=== PATIENT | male | born 1975 | race African-American/Black ===

== ENCOUNTER → 2017-05-29 18:55 | Outpatient (CLI) | payer MEDICAID | END | disposition home or self-care (01) | LOC: D.SLEEP 18:55 | DX: G47.9 Sleep disorder, unspecified (principal) ==

== ENCOUNTER 2017-07-17 19:18 | Emergency (ER) | payer MEDICAID | END 2017-07-17 22:26 | disposition home or self-care (01) | LOC: D.ER 19:18 | DX: R51 Headache (principal); E03.9 Hypothyroidism, unspecified; I10 Essential (primary) hypertension ==

== ENCOUNTER 2017-11-18 08:47 | Emergency (ER) | payer MEDICAID | END 2017-11-18 09:16 | disposition home or self-care (01) | LOC: D.ER 08:47 | DX: L02.416 Cutaneous abscess of left lower limb (principal); B95.62 Methicillin resistant Staphylococcus aureus infection as the cause of diseases classified elsewhere; I10 Essential (primary) hypertension ==

== ENCOUNTER 2018-03-26 16:44 | Emergency (ER) | payer MEDICAID ==
[~2018-03-26] VITALS: Ht 185.4 cm; Wt 113.6 kg
[2018-03-26 17:38] VITALS: Ht 185.4 cm; Wt 113.6 kg
[2018-03-26] MEDS ORDERED: PRINIVIL20 MG (17:41)
[2018-03-26] MEDS ORDERED: SYNTHROID75 MCG PO (17:41)
[2018-03-26] MEDS ORDERED: CYCLOBENZAPRINE10 MG PO (19:43)
[2018-03-26] MEDS ORDERED: EC-NAPROSYN500 MG PO (19:43)
[2018-03-26 20:15] VITALS: BP 127/91
== END 2018-03-26 20:15 | disposition home or self-care (01) ==
LOC: D.ER 16:44
DX: S39.012A Strain of muscle, fascia and tendon of lower back, initial encounter (principal); V43.62XA Car passenger injured in collision with other type car in traffic accident, initial encounter; Y93.89 Activity, other specified; Y92.410 Unspecified street and highway as the place of occurrence of the external cause; M25.552 Pain in left hip; M25.512 Pain in left shoulder; I10 Essential (primary) hypertension

== ENCOUNTER 2018-03-31 18:10 | Emergency (ER) | payer MEDICAID ==
[~2018-03-31] VITALS: Ht 185.4 cm; Wt 113.6 kg
[~2018-03-31 18:10] MED LIST: CYCLOBENZAPRINE10 MG PO; EC-NAPROSYN500 MG PO; PRINIVIL20 MG; SYNTHROID75 MCG PO
[2018-03-31 18:19] VITALS: Ht 185.4 cm; Wt 113.6 kg
[2018-03-31] MEDS ORDERED: NORCO 7.5/325 T1 TA1 PO (20:11)
[2018-03-31 20:29] VITALS: BP 134/90
== END 2018-03-31 20:29 | disposition home or self-care (01) ==
LOC: D.ER 18:10
DX: Q66.89 Other specified congenital deformities of feet (principal); E07.9 Disorder of thyroid, unspecified; I10 Essential (primary) hypertension

== ENCOUNTER 2018-06-29 02:13 | Emergency (ER) | payer MEDICAID ==
[~2018-06-29] VITALS: Ht 185.4 cm; Wt 72.7 kg
[~2018-06-29 02:13] MED LIST changes: +NORCO 7.5/325 T1 TA1 PO
[2018-06-29 02:20] VITALS: Ht 185.4 cm; Wt 72.7 kg
[2018-06-29] MEDS ORDERED: ALBUTEROL SULF8.5 GM INH (03:32)
[2018-06-29 03:52] VITALS: BP 132/83
== END 2018-06-29 03:52 | disposition home or self-care (01) ==
LOC: D.ER 02:13
DX: R06.02 Shortness of breath (principal)

== ENCOUNTER 2018-09-08 10:43 | Emergency (ER) | payer MEDICAID ==
[~2018-09-08] VITALS: Ht 185.4 cm; Wt 90.9 kg
[~2018-09-08 10:43] MED LIST changes: +ALBUTEROL SULF8.5 GM INH
[2018-09-08 10:46] VITALS: Ht 185.4 cm; Wt 90.9 kg
[2018-09-08] MEDS ORDERED: TAMIFLU75 MG PO (11:19)
[2018-09-08 11:23] VITALS: BP 124/62
== END 2018-09-08 11:24 | disposition home or self-care (01) ==
LOC: D.ER 10:43
DX: J11.1 Influenza due to unidentified influenza virus with other respiratory manifestations (principal); R51 Headache; R07.89 Other chest pain

== ENCOUNTER → 2019-01-22 14:06 | Outpatient (CLI) | payer MEDICAID ==
[2018-09-08 10:46] VITALS: BMI 26.4
[~2019-01-22 14:06] MED LIST changes: +CLOTRIM ANTIFUN15 GM TOPICAL; +COUMADIN5 MG PO; +ELIQUIS5 MG PO; +HYDROCHLOROTHIA50 MG PO; +IBUPROFEN800 MG PO; +METOPROLOL TART50 MG PO; -PRINIVIL20 MG; +PRINIVIL20 MG PO; +TAMIFLU75 MG PO
[2019-03-16 13:50] VITALS: BMI 31.0
== END | disposition home or self-care (01) ==
LOC: D.US 14:00
PROVIDERS: ATTEND Nurse Practitioner
DX: R60.9 Edema, unspecified (principal)

== ENCOUNTER 2019-01-22 15:19 | Emergency (ER) | payer MEDICAID ==
[~2019-01-22] VITALS: Ht 185.4 cm; Wt 127.3 kg
[~2019-01-22 15:19] MED LIST changes: -CLOTRIM ANTIFUN15 GM TOPICAL; -COUMADIN5 MG PO; -ELIQUIS5 MG PO; -HYDROCHLOROTHIA50 MG PO; -IBUPROFEN800 MG PO; -METOPROLOL TART50 MG PO
[2019-01-22 15:33] VITALS: Ht 185.4 cm; Wt 127.3 kg
[2019-01-22 16:14] LABS: BASOPHILS 0.2 % (0-2); EOSINOPHILS 1.8 % (0-7); HEMATOCRIT 46.4 % (42.0-54.0); HEMOGLOBIN 15.5 g/dL (13.5-17.5); IMMATURE GRANULOCYTES 0.3 % (0-5); LYMPHOCYTES 29.4 % (15-50); MCH 27.4 pg (26.0-34.0); MCHC 33.4 g/dL (31.0-37.0); MEAN PLATELET VOLUME 9.3 fL (7.4-10.4); NEUTROPHILS 60.3 % (40-80); PLATELET COUNT 170 10x3/uL (130-400); RBC 5.66 10x6/uL (4.20-6.10); RDW 16.1 % (11.5-14.5); WBC 6.3 10x3/uL (4.8-10.8)
[2019-01-22 16:22] LABS: INR 1.12 (0.85-1.17); PROTIME 13.9 SECONDS (11.6-15.0)
[2019-01-22 16:33] LABS: ALBUMIN 4.1 g/dL (3.4-5.0); ANION GAP 8.6 mmol/L (8-16); BILIRUBIN - TOTAL 0.86 mg/dL (0.2-1.3); CALCIUM 9.4 mg/dL (8.5-10.1); CARBON DIOXIDE 31.7 mmol/L (21.0-32.0); CREATININE - SERUM 1.2 mg/dL (0.6-1.3); POTASSIUM - SERUM 3.3 mmol/L (3.5-5.1); PROTEIN - SERUM 8.4 g/dL (6.4-8.2)
[2019-01-22] MEDS ORDERED: ELIQUIS5 MG PO (17:19)
[2019-01-22 17:47] VITALS: BP 132/92
== END 2019-01-22 17:47 | disposition home or self-care (01) ==
LOC: D.ER 15:19
PROVIDERS: Family Medicine
DX: I82.403 Acute embolism and thrombosis of unspecified deep veins of lower extremity, bilateral (principal)

== ENCOUNTER 2019-02-03 15:14 | Emergency (ER) | payer MEDICAID ==
[~2019-02-03] VITALS: Ht 185.4 cm; Wt 124.7 kg
[~2019-02-03 15:14] MED LIST changes: +ELIQUIS5 MG PO
[2019-02-03 15:38] VITALS: Ht 185.4 cm; Wt 124.7 kg
[2019-02-03 16:23] LABS: APTT 31.1 SECONDS (22.8-39.4); INR 1.22 (0.85-1.17); PROTIME 14.9 SECONDS (11.6-15.0)
[2019-02-03 16:24] LABS: D-DIMER-QUANTITATIVE 3.01 ug/mLFEU (0.20-0.54)
[2019-02-03 16:57] LABS: BASOPHILS 0.2 % (0-2); EOSINOPHILS 1.3 % (0-7); HEMATOCRIT 41.7 % (42.0-54.0); HEMOGLOBIN 14.1 g/dL (13.5-17.5); IMMATURE GRANULOCYTES 0.2 % (0-5); LYMPHOCYTES 35.8 % (15-50); MCH 27.4 pg (26.0-34.0); MCHC 33.8 g/dL (31.0-37.0); MEAN PLATELET VOLUME 9.4 fL (7.4-10.4); MONOCYTES 12.2 % (2-11); NEUTROPHILS 50.3 % (40-80); PLATELET COUNT 168 10x3/uL (130-400); RBC 5.15 10x6/uL (4.20-6.10); RDW 15.4 % (11.5-14.5); WBC 6.4 10x3/uL (4.8-10.8)
[2019-02-03 17:12] LABS: ALBUMIN 3.8 g/dL (3.4-5.0); ALKALINE PHOSPHATASE 90 U/L (46-116); ALT (SGPT) 43 U/L (10-68); BILIRUBIN - TOTAL 0.33 mg/dL (0.2-1.3); CALC OSMOLALITY 272 mosm/kg (275-300); CALCIUM 9.7 mg/dL (8.5-10.1); CARBON DIOXIDE 26.2 mmol/L (21.0-32.0); CHLORIDE - SERUM 103 mmol/L (98-107); CREATININE - SERUM 1.1 mg/dL (0.6-1.3); GLUCOSE 108 mg/dL (74-106); POTASSIUM - SERUM 3.9 mmol/L (3.5-5.1); PROTEIN - SERUM 7.8 g/dL (6.4-8.2); SODIUM 136 mmol/L (136-145); UREA NITROGEN 13 mg/dL (7-18); URIC ACID 6.5 mg/dL (2.6-7.2); eGFR NON AFRICAN AMERICAN 78 mL/min (90-120)
[2019-02-03 19:31] VITALS: BP 152/78
== END 2019-02-03 19:32 | disposition home or self-care (01) ==
LOC: D.ER 15:14
PROVIDERS: Family Medicine
DX: S90.111A Contusion of right great toe without damage to nail, initial encounter (principal); X58.XXXA Exposure to other specified factors, initial encounter; Z86.718 Personal history of other venous thrombosis and embolism

== ENCOUNTER 2019-02-12 07:50 | Inpatient (IN) | payer MEDICAID ==
[~2019-02-12] VITALS: Ht 185.4 cm; Wt 108.0 kg
[2019-02-12] VITALS (14 sets, daily range): BP systolic 91–154; BP diastolic 57–99
[2019-02-12] MEDS ORDERED: IBUPROFEN800 MG PO (08:07)
[2019-02-12 08:33] LABS: BASOPHILS 0.1 % (0-2); EOSINOPHILS 1.5 % (0-7); HEMATOCRIT 42.9 % (42.0-54.0); HEMOGLOBIN 14.5 g/dL (13.5-17.5); IMMATURE GRANULOCYTES 0.5 % (0-5); LYMPHOCYTES 21.7 % (15-50); MCH 27.5 pg (26.0-34.0); MCHC 33.8 g/dL (31.0-37.0); MCV 81.4 fL (80.0-100.0); MEAN PLATELET VOLUME 9.5 fL (7.4-10.4); MONOCYTES 5.4 % (2-11); NEUTROPHILS 70.8 % (40-80); RBC 5.27 10x6/uL (4.20-6.10); RDW 15.9 % (11.5-14.5); WBC 8.7 10x3/uL (4.8-10.8)
[2019-02-12 08:41] LABS: PLATELET COUNT 107 10x3/uL (130-400)
[2019-02-12 08:43] LABS: APTT 29.1 SECONDS (22.8-39.4); INR 1.14 (0.85-1.17); PROTIME 14.1 SECONDS (11.6-15.0)
--- NOTE | 2019-02-12 08:47 | NUR ---
CARDIOLOGY CALLED AND INSTR TO KEEP PT NPO AND NO CAFFEINE FOR ST THIS AM. INSTR PT, VERB UNDER.
[2019-02-12 08:49] LABS: ALBUMIN 3.7 g/dL (3.4-5.0); ALKALINE PHOSPHATASE 99 U/L (46-116); ALT (SGPT) 179 U/L (10-68); BILIRUBIN - TOTAL 0.75 mg/dL (0.2-1.3); CALC OSMOLALITY 285 mosm/kg (275-300); CALCIUM 9.4 mg/dL (8.5-10.1); CARBON DIOXIDE 26.3 mmol/L (21.0-32.0); CHLORIDE - SERUM 106 mmol/L (98-107); CREATININE - SERUM 1.3 mg/dL (0.6-1.3); GLUCOSE 166 mg/dL (74-106); POTASSIUM - SERUM 3.5 mmol/L (3.5-5.1); PROTEIN - SERUM 7.9 g/dL (6.4-8.2); SODIUM 141 mmol/L (136-145); UREA NITROGEN 14 mg/dL (7-18); eGFR NON AFRICAN AMERICAN 64 mL/min (90-120)
[2019-02-12 08:52] LABS: D-DIMER-QUANTITATIVE 9.87 ug/mLFEU (0.20-0.54)
--- NOTE | 2019-02-12 09:02 | NUR ---
NUC MED TECH AT BS FOR MED INJECTION
[2019-02-12 09:04] LABS: CKMB 1.5 U/L (0.0-3.6); CREATINE KINASE 420 UL (21-232); MAGNESIUM - SERUM 1.8 mg/dL (1.8-2.4); TROPONIN-I 0.059 ng/mL (0.000-0.060)
--- NOTE | 2019-02-12 09:45 | NUR ---
TO NUC MED FOR ST VIA STRETCHER
--- NOTE | 2019-02-12 11:10 | NUR ---
RTND FROM ST ND CT
--- NOTE | 2019-02-12 11:55 | NUR ---
O2 SATS 87-88% ON RA O2 PLACED AT 2 L PNC
--- NOTE | 2019-02-12 12:56 | NUR ---
REPORT CALLED TO CAN [facility] BY SBAR FORMAT
--- NOTE | 2019-02-12 13:00 | NUR ---
TRANSPORTED TO ROOM #2126, CONDITION STABLE
--- NOTE | 2019-02-12 13:51 | NUR ---
RECEIVED PT FROM ER. PT IS AAO AND UP AD DAGOBERTO. NS INFUSING @125ML/HR VIA L.AC PIV. RR EVEN AND LABORED ON 2L 02. ENTERED ROOM AND WITNESSED INSTRUCTING THE PT FOR THE NEED TO TRANSFER TO ICU. TRANSFERED PT TO ROOM 2306. WILL CTM.
[2019-02-12] MEDS ORDERED: HYDROCHLOROTHIA50 MG PO (14:15)
[2019-02-12] MEDS ORDERED: CLOTRIM ANTIFUN15 GM TOPICAL (14:16)
[2019-02-12 14:24] LABS: CREATINE KINASE 365 UL (21-232); PRO BNP 1496 pg/mL (0-125)
[2019-02-12 14:27] LABS: TROPONIN-I 0.174 ng/mL (0.000-0.060)
--- NOTE | 2019-02-12 15:00 | NUR ---
RECEIVED PT FROM [facility]. STARTED ON ALTEPLASE. COMPLETING ADMISSION ASSESSMENT
[2019-02-12 15:11] LABS: HEMATOCRIT 41.4 % (42.0-54.0); MCH 27.2 pg (26.0-34.0); MCHC 33.8 g/dL (31.0-37.0); MCV 80.5 fL (80.0-100.0); MEAN PLATELET VOLUME 9.1 fL (7.4-10.4); RBC 5.14 10x6/uL (4.20-6.10); RDW 15.6 % (11.5-14.5); WBC 7.8 10x3/uL (4.8-10.8)
--- NOTE | 2019-02-12 17:00 | NUR ---
PT EATING MEAL TRAY. TOLERATING WELL. WILL CONTINUE TO MONITOR
[2019-02-12 17:34] LABS: APTT 105.2 SECONDS (22.8-39.4); INR 2.25 (0.85-1.17); PROTIME 24.2 SECONDS (11.6-15.0)
--- NOTE | 2019-02-12 19:11 | NUR ---
REPORT RECEIVED, SHIFT ASSESSMENT COMPLETED PER FLOW SHEET, SEE FOR DETAILS. AAOX4. PPP. DENIES PAIN OR NEEDS. LT AC PIV PATENT, DRESSING C/D/I, NO SIGNS OF INFECTION OR INFILTRATION. CALL LIGHT WITHIN REACH. WILL CONTINUE TO MONITOR.
--- NOTE | 2019-02-12 20:25 | MORECARE ---
CASE MANAGEMENT DISCHARGE SUMMARY PATIENT: GUMARO CHEN UNIT: [id number] ADM DATE: 02/12/19 AGE: 43 : [birth year] SEX: M ROOM/BED: D.2306 AUTHOR: ANGIE,DOC PHYSICIAN: REFERRING PHYSICIAN: ANDI OGLESBY MD DATE OF SERVICE: 02/12/19 Discharge Plan Patient Name: GUMARO CHEN Facility: [facility]:[place] : 1975 Planned Disposition: Home Anticipated Discharge Date: Discharge Date: Expected LOS: Initial Reviewer: [email or web address] Initial Review Date: 02/12/2019 Generated: 02/12/19 9:25 pm Comments DCP- Discharge Planning Updated by [email or web address]: Karuna Armstrong on 02/12/19 7:[address] Patient Name: GUMARO CHEN Admission Status: ER Accout number: [id number] Admission Date: 02-12-2019 : 1975 Admission Diagnosis: Attending: BRAULIO OGLESBY Current LOS: 1 Anticipated DC Date: Planned Disposition: Home Primary Insurance: MEDICAID [place] Discharge Planning Comments: CM met with patient at bedside after explaining CM role and obtaining verbal consent. Patient lives at home with his friend Darlin where he is independent with his care and plans to return there upon discharge. Patient feels this would be a safe discharge. CM discussed availability / needs of home health and medical equipment. Patient states he has a CPAP but Medicaid will not pay for it so they are suppose to pick it up. Patient denies any discharge needs at this time. Patient states he will have his family drive him home upon discharge. CM will continue to follow and assist as needed with discharge planning / needs. Herb Doctor: Karuna Armstrong DCPIA - Discharge Planning Initial Assessment Updated by [id number]: Karuna Armstrong on 02/12/19 8:22 pm * Is the patient Alert and Oriented? Yes * How many steps to enter\exit or inside your home? 4-6 * PCP CAROLE * [facility]acy [facility] * Preadmission Environment Home with Family * ADLs Independent * Other Equipment CPAP * List name and contact numbers for known caregivers / representatives who currently or will assist patient after discharge: DARLIN BRYANT- [phone] * Verbal permission to speak to the caregivers and representatives has been obtained from the patient. Yes * Community resources currently utilized None * Additional services required to return to the preadmission environment? No * Can the patient safely return to the preadmission environment? Yes * Has this patient been hospitalized within the prior 30 days at any hospital? No Patient Name: GUMARO CHEN Page [id number] at 2024 All edits/amendments must be made on the electronic document DICTATION DATE: 02/12/192024 HAND BOOKBINDER: WOOD 02/12/192024 RPT#: [id number] DC DATE: STATUS: ADM IN [facility] [address] [place] [address] END OF REPORT
--- NOTE | 2019-02-12 21:00 | NUR ---
RESTING IN BED, WATCHING TV, DENIES PAIN OR NEEDS. PPP. WILL CONTINUE TO MONITOR.
[2019-02-12 21:56] LABS: CKMB 1.6 U/L (0.0-3.6); CREATINE KINASE 302 UL (21-232)
[2019-02-12 22:00] LABS: TROPONIN-I 0.123 ng/mL (0.000-0.060)
--- NOTE | 2019-02-12 23:01 | NUR ---
REASSESSMENT COMPLETED PER FLOW SHEET, SEE FOR DETAILS. DENIES PAIN OR NEEDS. CALL LIGHT WITHIN REACH. WILL CONTINUE TO MONITOR.
[2019-02-13] VITALS (18 sets, daily range): BP systolic 104–145; BP diastolic 63–84; Ht 185.4 cm; Wt 108.0 kg
--- NOTE | 2019-02-13 01:00 | NUR ---
DENIES NEEDS, NO ACUTE DISTRESS NOTED, WILL CONTINUE TO MONITOR.
--- NOTE | 2019-02-13 03:00 | NUR ---
REASSESSMENT COMPLETED PER FLOW SHEET, SEE FOR DETAILS. NO ACUTE CHANGES NOTED. DENIES PAIN. WILL CONTINUE TO MONITOR.
--- NOTE | 2019-02-13 05:00 | NUR ---
RESTING, DENIES NEEDS, WILL CONTINUE TO MONITOR.
[2019-02-13 05:51] LABS: BASOPHILS 0.1 % (0-2); HEMATOCRIT 37.9 % (42.0-54.0); HEMOGLOBIN 12.7 g/dL (13.5-17.5); IMMATURE GRANULOCYTES 0.5 % (0-5); LYMPHOCYTES 27.3 % (15-50); MCHC 33.5 g/dL (31.0-37.0); MCV 80.6 fL (80.0-100.0); MEAN PLATELET VOLUME 9.3 fL (7.4-10.4); MONOCYTES 8.1 % (2-11); PLATELET COUNT 101 10x3/uL (130-400); RDW 15.8 % (11.5-14.5); WBC 9.2 10x3/uL (4.8-10.8)
--- NOTE | 2019-02-13 06:00 | NUR ---
COMPLETE BED BATH GIVEN, COMPLETE BED LINEN CHANGE PROVIDED, MITCHELL CARE PROVIDED. TOLERATED ALL WELL. DENIES OTHER NEEDS. CALL LIGHT WITHIN REACH.
[2019-02-13 06:23] LABS: ALKALINE PHOSPHATASE 72 U/L (46-116); BILIRUBIN - TOTAL 0.66 mg/dL (0.2-1.3); CALCIUM 8.4 mg/dL (8.5-10.1); CARBON DIOXIDE 27.9 mmol/L (21.0-32.0); CHLORIDE - SERUM 109 mmol/L (98-107); CREATININE - SERUM 1.1 mg/dL (0.6-1.3); POTASSIUM - SERUM 3.7 mmol/L (3.5-5.1); PROTEIN - SERUM 6.3 g/dL (6.4-8.2); SODIUM 143 mmol/L (136-145); UREA NITROGEN 12 mg/dL (7-18); eGFR NON AFRICAN AMERICAN 78 mL/min (90-120)
[2019-02-13 06:24] LABS: ALT (SGPT) 112 U/L (10-68); CALC OSMOLALITY 284 mosm/kg (275-300); GLUCOSE 101 mg/dL (74-106)
--- NOTE | 2019-02-13 07:00 | NUR ---
patient resting. breakfast provided. will continue to monitor. vss. call light within reach. shift assessment completed.
--- NOTE | 2019-02-13 09:00 | NUR ---
patien afebrile. oral care provided at this time. vss. denies needs at this time. pass word set up. will conitnue to monitor
--- NOTE | 2019-02-13 11:04 | NUR ---
patient sleeping. vss. bed low and locked. vss. call light within reach. no needs at this time. no distress noted. no changes.
--- NOTE | 2019-02-13 12:16 | NUR ---
dr springer at bedside. update given..
--- NOTE | 2019-02-13 13:00 | NUR ---
PATIENT SLEEPING AT THIS TIME. NO DISTRESS NOTED. WILL CONTINUE TO MONITOR.
--- NOTE | 2019-02-13 15:20 | NUR ---
PATIENT ON THE PHONE. WILL TRANSFER AFTER CODE IS SETTLED DOWN. VSS. WILL CONTINUE TO MONITOR
--- NOTE | 2019-02-13 16:04 | NUR ---
OFFICER AT BEDSIDE. PATIENT IS HAVING PERSONAL PROBLEMS SO CALLED OFFICER TO ICU TO TRY AND FIX.
--- NOTE | 2019-02-13 17:16 | NUR ---
PATIENT ON THE PHONE. DISCUSSING PERSONAL PROBLEMS LOUDLY. I AND O DONE AT THIS TIME. WILL CONTINUE TO MONITOR. TRAY PROVIDED.
--- NOTE | 2019-02-13 18:18 | NUR ---
report given to sushil
[2019-02-14 00:27] VITALS: BP 130/68
--- NOTE | 2019-02-14 03:18 | NUR ---
I have reviewed this patient and I concur with the Shift Assessment completed by the Licensed Practical Nurse today this shift.
--- NOTE | 2019-02-14 03:20 | NUR ---
RESTING WITH EYES CLOSED, RESPERATONS EVEN, NO S/S DSITRESS NOTED.
[2019-02-14 04:19] VITALS: BP 117/64
[2019-02-14 06:59] LABS: THYROID STIMULATING HORMONE 8.43 uIU/mL (0.36-3.74)
--- NOTE | 2019-02-14 07:21 | NUR ---
REPORT RECEIVED. WILL CONTINUE WITH POC. PT CURRENTLY LYING SEMI FOWLERS. CALL LIGHT W/I REACH. PT IS AAO AND DENIES ANY NEEDS. RR EVEN AND UNLABORED ON RA. NS INFUSING @75ML/HR AND HEPARIN INFUSING @8ML/HR VIA R.WRIST PIV. MITCHELL IN PLACE AND DRAINING URINE. NO S/S OF DISTRESS NOTED. WILL CTM.
--- NOTE | 2019-02-14 08:25 | NUR ---
INCREASED HEPARIN TO 9ML/HR PER PROTOCOL AND PLACED ORDERED FOR APTT REDRAW @1400. WILL CTM.
[2019-02-14 08:32] VITALS: BP 142/96
--- NOTE | 2019-02-14 09:26 | NUR ---
I have reviewed this patient and I concur with the Shift Assessment completed by the Licensed Practical Nurse today this shift.
[2019-02-14 11:34] VITALS: BP 131/88
--- NOTE | 2019-02-14 12:32 | NUR ---
PT CURRENTLY LYING SEMI FOWLERS. CALL LIGHT W/I REACH. PT DENIES ANY NEEDS. NO S/S OF DISTRESS NOTED. WILL CTM.
[2019-02-14 16:23] VITALS: BP 138/98
--- NOTE | 2019-02-14 16:26 | NUR ---
INCREASED HEPARIN INFUSION TO 10ML/HR OR 1000UNITS/HR PER PROTOCOL. PLACED ORDER FOR APTT REDRAW 6 HOURS OUT. WILL CTM.
--- NOTE | 2019-02-14 19:29 | NUR ---
INITIAL ROUNDS COMPLETED. PT DENIES ANY DISCOMFORT. SR UP X1, ALL LIGHT WITHIN REACH.
[2019-02-14 20:00] VITALS: BP 137/85
--- NOTE | 2019-02-14 20:23 | NUR ---
ASSESSMENT COMPLETED AT 1955 HRS. PT DENIED ANY DISCOMFORT. ALERT AND ORIENTED TO PERSON, PLACE AND TIME. CAREY. IV TO R WRIST WITH NS AT 75CC/HR AND HEPARIN AT 1000U/HR. IV PATETN. LUNGS DIMINISHED IN BASES BILAT. PALPABLE PERIPHERAL PULSES MITCHELL DRAINING YELLOW URINE. SR UP X2, CALL LIGHT WITHIN REACH.
--- NOTE | 2019-02-14 21:37 | NUR ---
PM MED GIVEN. PT DENIES ANY DISCOMFORT. CALL LIGHT WITHIN REACH.
--- NOTE | 2019-02-14 23:10 | NUR ---
PTT 42.2. HEPARIN DRIP INCREASED BY 1000U/HR TO 11CC/HR.
--- NOTE | 2019-02-14 23:14 | NUR ---
PT COUGHING. SLIGHTLY BLOOD TINGED EXUDATE NOTED. ST PER CM HR 102. PT DENIES ANY SOB OR DIFFUCULTY BREATHING. FAN PLACED IN ROOM PER REQUEST.
--- NOTE | 2019-02-14 23:33 | NUR ---
PT RESTING WITH EYES CLOSED. RESP EVEN AND REGULAR. SR UP X1, CALL LIGHT WITHIN REACH.
[2019-02-15] VITALS: BP 126/77
--- NOTE | 2019-02-15 01:14 | NUR ---
O2 SAT IN HIGH 60'S. PT DENIES ANY DISCOMFORT. O2 4LNC WITH O SAT TO 73. RESP CALLED. PT PLACED ON 100% NON-REBREATHER. O2 STILL IN 70'S. RAPID RESPONSE CALLED AT 0050 HRS. O2 SAT TO 88-90% ABG'S DRAWN AND CXR IN PROGRESS.
--- NOTE | 2019-02-15 01:17 | NUR ---
R LUNG MORE DIMINSHED AT THIS TIME COMPARED TO INITIAL ASSESSMENT.
--- NOTE | 2019-02-15 01:57 | NUR ---
O2 SAT NOW 95% ON 100% BIPAP. RT STSATES WILL WEAN DOWN. INFORMED PT TAHT HE MUST LEAVE BIPAP MASK IN PLACE. STATED UNDERSTANDING. SR UP X1, CALL LIGHT WITHIN REACH.
--- NOTE | 2019-02-15 02:50 | NUR ---
O2 SAT 100% ON 100% BIPAP. RESP 24. PT RESTING WTH EYES CLOSED. RESP EVEN AND REGULAR. SR UP X1, CALL LIGHT WITHIN REACH.
[2019-02-15 04:00] VITALS: BP 128/84
--- NOTE | 2019-02-15 04:18 | NUR ---
O2 SAT 100% ON BIPAP. PT RESTING WITH EYES CLOSED. RESP EVEN AND REGULAR. SR UP X2, CALL LIGHT WITHIN REACH.
--- NOTE | 2019-02-15 05:55 | NUR ---
VSS THIS AM. SR PER CM. O2 STABLE ON BIPAP. NEEDS MET; WILL CONTINUE TO MONITOR.
[2019-02-15 06:21] LABS: HEMATOCRIT 39.2 % (42.0-54.0); HEMOGLOBIN 13.6 g/dL (13.5-17.5); MCH 27.6 pg (26.0-34.0); MCHC 34.7 g/dL (31.0-37.0); MCV 79.7 fL (80.0-100.0); MEAN PLATELET VOLUME 9.5 fL (7.4-10.4); RBC 4.92 10x6/uL (4.20-6.10); RDW 15.5 % (11.5-14.5)
[2019-02-15 06:35] LABS: WBC 12.5 10x3/uL (4.8-10.8)
[2019-02-15 06:59] LABS: APTT 50.1 SECONDS (22.8-39.4); INR 1.21 (0.85-1.17); PROTIME 14.8 SECONDS (11.6-15.0)
[2019-02-15 07:13] LABS: HCG-QUANTITATIVE(TUMOR MARKER) <1 mIU/mL (0-3)
--- NOTE | 2019-02-15 07:46 | NUR ---
PT AWAKE AND ALERT. PT ON A BIPAP AT 80%. DENIES ANY FEELING OF SOB. TELEMERTY SHOWS SR 83. RIGHT WRIST IV WITH HEPARIN DRIP AT 11 AND NS AT 75. MITCHELL CATH TO BEDSIDE DRAINAGE. WILL MONITOR
[2019-02-15 09:14] VITALS: BP 144/87
[2019-02-15 14:08] LABS: ALPHA FETOPROTEIN -(TUMOR MRK) 2.6 ng/mL (0.0-8.3); CA 19-9 2 U/mL (0-35)
--- NOTE | 2019-02-15 16:04 | NUR ---
NO COMPLAINTS VOICED. EYES CLOSED ,RESPERATION REG AND NON LABORED. TELEMERTY SHOWS SR
--- NOTE | 2019-02-15 18:24 | NUR ---
HOB UP EATING. DENIES ANY NEEDS. TELEMETY SHOWS SR 78. WILL MONITOR
[2019-02-15 21:04] VITALS: BP 159/95
--- NOTE | 2019-02-15 21:44 | NUR ---
INITAIL ROUNDS COMPLETED AT 1914 HRS. PT TALKING ON THE PHONE. NO DISTRESS NOTED. ASSESSMENT COMPLETED AT 2019 HRS. O2 SAT 91% ON 3LNC. ALERT AND ORIENTED. SLOW TO RESPOND. LUNGS DIMINISHED IN BASES BILAT. SR PER CM HR 97. CAREY. PALPABLE PERIPHERAL PULSES. MITCHELL DRAINING YELLOW URINE. IV TO R WRIST WITH HEPARIN AT 1300U/HR (13CC/HR). IV PATENT. ZOFRAN 4MG SIVP GIVEN AT 2021 HRS FOR C/O NAUSEA. PTT INCREASED TO 1400U/HR AT 2120 PER HEPARIN S/S. PT CURRENTLY WATCHING TV. SR UP X1, CALL LIGHT WITHIN REACH.
[2019-02-15 23:49] VITALS: BP 142/99
--- NOTE | 2019-02-16 00:15 | NUR ---
PT WATCHING TV. STATES STILL FEELS NAUSEATED. DECLINES BIPAP AT THIS TIME. CALL LIGHT WITHIN REACH.
--- NOTE | 2019-02-16 02:57 | NUR ---
PT RESTING WITH EYES CLOSED. RESP EVEN AND REGULAR. SR UP X1, CALL LIGHT WITHIN REACH.
--- NOTE | 2019-02-16 05:06 | NUR ---
WATCHING TV. DENIES ANY DISCOMFORT. O2 11L HIGH FLOW O2. CALL LIGHT WITHIN REACH.
[2019-02-16 05:26] LABS: HEMATOCRIT 41.8 % (42.0-54.0); HEMOGLOBIN 14.5 g/dL (13.5-17.5); MCH 27.7 pg (26.0-34.0); MCHC 34.7 g/dL (31.0-37.0); MCV 79.9 fL (80.0-100.0); MEAN PLATELET VOLUME 10.3 fL (7.4-10.4); RBC 5.23 10x6/uL (4.20-6.10); RDW 15.9 % (11.5-14.5); WBC 14.5 10x3/uL (4.8-10.8)
[2019-02-16 05:51] VITALS: BP 142/85
--- NOTE | 2019-02-16 07:22 | NUR ---
AWAKE AND ALERT, TELEMERTY SHOWS SR 85. O2 AT 11 L/M PER OXIMIZER. LUNGS DIMISHED. MITCHELL CATH TO BEDSIDE DRAINAGE BAG. DENIES ANY NEEDS. SR UP WITH CALL LIGHT IN REACH.
[2019-02-16 08:08] VITALS: BP 123/74
[2019-02-16 09:43] LABS: PRO BNP 1608 pg/mL (0-125)
[2019-02-16 09:45] LABS: TROPONIN-I < 0.017 ng/mL (0.000-0.060)
[2019-02-16 10:50] LABS: INR 1.75 (0.85-1.17); PROTIME 19.8 SECONDS (11.6-15.0)
[2019-02-16 12:59] VITALS: BP 128/77
--- NOTE | 2019-02-16 14:06 | NUR ---
UP IN CHAIR FOR BATH AND MITCHELL CARE. DENIES ANY NEEDS, STATES HES GOING HOME TOMORROW. TELEMERTY SHOWS SR. WILL MONITOR
[2019-02-16 17:29] VITALS: BP 121/78
[2019-02-16 20:00] VITALS: BP 134/83
--- NOTE | 2019-02-16 20:06 | NUR ---
INITIAL ROUNDS COMPLETED AT 191 HRS. PT DENIED ANY DISCOMFORT. ASSESSMENT COMPLETED AT 1955 HRS. ALERT AND ORIENTED TO PERSON, PLACE AND TIME. CAREY. O2 10L OXIMIZER. LUNGS DIMINISHED IN BASES BILAT. SR PER CM HR 94. ABD SOFT WITH ACTIVE BS NOTED. IV TO R WRIST WITH HEPARIN INFUSING AT 1400U/HR. IV PATENT. PALPABLE PERIPHERAL PULSES. 1+ EDEMA TO R FOOT. MITCHELL DRAINING YELLOW URINE. SR UP X1, CALL LIGHT WITHIN REACH.
--- NOTE | 2019-02-16 21:07 | NUR ---
PT USING IS. PM MED GIVEN. PT STATES HE WILL WEAR BIPAP AT HS. CALL LIGHT WITHIN REACH.
[2019-02-17] VITALS: BP 115/78
--- NOTE | 2019-02-17 00:58 | NUR ---
PTRESTING WITH EYES CLOSED. RESP EVEN AND REGULAR. BIPAP IN USE. SR UP X2, CALL LIGHT WITHIN REACH.
--- NOTE | 2019-02-17 02:43 | NUR ---
PT RESTING WITH EYES CLOSED. RESP EVEN AND REGULAR. SR UP X2, CALL LIGHT WITHIN REACH.
[2019-02-17 04:00] VITALS: BP 123/78
--- NOTE | 2019-02-17 04:56 | NUR ---
PT RESTING WITH EYES CLOSED. RESP EVEN AND REGULAR. SR UP X2, CALL LIGHT WITHIN REACH AND BIPAP IN USE.
[2019-02-17 06:46] LABS: HEMATOCRIT 39.6 % (42.0-54.0); HEMOGLOBIN 13.4 g/dL (13.5-17.5); MCHC 33.8 g/dL (31.0-37.0); MCV 79.8 fL (80.0-100.0); MEAN PLATELET VOLUME 10.1 fL (7.4-10.4); RBC 4.96 10x6/uL (4.20-6.10); RDW 16.2 % (11.5-14.5)
[2019-02-17 07:09] LABS: WBC 10.8 10x3/uL (4.8-10.8)
[2019-02-17 08:17] VITALS: BP 115/72
[2019-02-17 08:54] LABS: INR 2.07 (0.85-1.17); PROTIME 22.6 SECONDS (11.6-15.0)
--- NOTE | 2019-02-17 10:33 | NUR ---
I have reviewed this patient and I concur with the Shift Assessment completed by the Licensed Practical Nurse today this shift.
--- NOTE | 2019-02-17 11:06 | NUR ---
ASSESSMENT DONE. DENIES NEEDS
[2019-02-17 12:10] VITALS: BP 121/67
--- NOTE | 2019-02-17 13:16 | NUR ---
Nutrition Follow-up: Pt reports good/fair appetite/PO intake. Diet: Cardiac PO intake: 50% (02/16) Wt: 238# Last BM: 02/16 per pt Labs reviewed Meds reviewed Continue current diet as tolerated. [place] food preferences within diet restrictions. RD following.
[2019-02-17 15:31] VITALS: BP 106/63
--- NOTE | 2019-02-17 18:36 | NUR ---
WITHOUT CHANGES OR DISTRESS NOTED AT THIS TIME. NEEDS
[2019-02-17 20:00] VITALS: BP 116/77
--- NOTE | 2019-02-17 21:51 | NUR ---
PATIENT ALERT AND ORIENTED, RESTING COMFORTABLY IN BED. RESPIRATIONS ARE EVEN AND UNLABORED. NO S/S OF DISTRESS. NO C/O PAIN. DENIES NEEDS. CALL LIGHT WITHIN REACH.
[2019-02-18 04:00] VITALS: BP 123/74
--- NOTE | 2019-02-18 07:19 | NUR ---
REPORT RECEIVED. WILL CONTINUE WITH POC. PT CURRENTLY LYING SEMI FOWLERS. CALL LIGHT W/I REACH. PT IS AAO AND BEDFAST. RR EVEN AND UNLABORED ON BIPAP. HEPARIN INFUSING @10ML/HR VIA R.WRIST PIV. MITCHELL IN PLACE AND DRAINING URINE. PT DENIES ANY NEEDS. NO S/S OF DISTRESS NOTED. WILL CTM.
--- NOTE | 2019-02-18 07:46 | NUR ---
HOLDING HEPARIN FOR 30 MINUTES PER HEPARIN PROTOCOL. WILL DECREASE TO TO 800UNITS/HR AND REDRAW IN 6 HOURS. WILL CTM.
--- NOTE | 2019-02-18 08:27 | NUR ---
HEPARIN RESTARTED AT 800UNITS/HR OR 8ML/HR VIA R.HAND PIV. WILL RECHECK IN 6 HOURS. WILL CTM.
[2019-02-18 08:54] LABS: INR 2.25 (0.85-1.17); PROTIME 24.1 SECONDS (11.6-15.0)
[2019-02-18 09:29] VITALS: BP 138/77
--- NOTE | 2019-02-18 09:39 | NUR ---
VERBALLY ORDERED FOR PATIENT TO START WORKING WITH PHYSICAL THERAPY AND TO PLACE ORDER. PLACED PT ORDER. WILL CTM.
--- NOTE | 2019-02-18 11:09 | ST ---
PATIENT:GUMARO CHEN MEDICAL RECORD: [id number] SEX: M [facility] #: ADMISSION DATE: 02/12/19 AGE OF PATIENT: 43 REFERRING PHYSICIAN: INTERPRETING PHYSICIAN: ANDI OGLESBY MD DATE OF SERVICE: 02/13/2019 PROCEDURE: Nuclear stress test. INDICATION: Chest discomfort. He was exercised on standard Lexiscan protocol with 32 mCi of sestamibi injected at peak stress. Rest images were done previously with 12 mCi. FINDINGS: Gated SPECT reveals preserved ejection fraction at 55% with good wall motion and thickening and brightening throughout all segments. SPECT imaging Cardiolite was used as myocardial fusion agent. There is homogeneous uptake throughout all segments at rest and stress with no evidence of inducible ischemia or previous infarction. OVERALL IMPRESSION: 1. This is a normal nuclear stress test with no evidence of inducible ischemia or previous infarction. 2. Gated SPECT reveals a preserved ejection fraction at 55%. In this patient with ongoing symptomatology, the current scan does not suggest the presence of hemodynamically significant coronary artery disease. Evaluate noncardiac etiology of chest pain. TRANSINT:[id number] Voice Confirmation ID: [id number] DOCUMENT ID: [id number] ANDI OGLESBY MD at 1109 CC: [id number] DICTATION DATE: 02/13/19 1240 PIECE DYEING MACHINE TENDER: 02/13/19 210 ADM IN [place] [id number] [place] [id number]
--- NOTE | 2019-02-18 11:09 | EC ---
PATIENT:GUMARO CHEN DATE OF SERVICE: 02/12/19 SEX: M MEDICAL RECORD: [id number] DATE OF : [birth year] LOCATION:D. D.212 AGE OF PATIENT: 43 ADMISSION DATE: 02/12/19 REFERRING PHYSICIAN: INTERPRETING PHYSICIAN: ANDI BERGERON MD ECHOCARDIOGRAM REPORT ECHO CHARGES 4 ECHO COMPLETE Date: 02/14/19 CLINICAL DIAGNOSIS: PULMONARY PRESSURES/PULMONARY EMBOLI ECHOCARDIOGRAPHIC MEASUREMENTS (adult normal given) AC root (d.<3.7cm) 3.4 cm LV Septum d (<1.2 cm> 1.3 cm Valve Excursion 1.1 cm LV Septum (systole) 1.5 cm Left Atria (s.<4.0cm> 3.5 cm LVPW d(<1.2cm) 1.4 cm RV (d.<2.3cm) 4.2 cm LVPW (sytole) 1.7 cm LV diastole(<5.6CM) 4.8 cm MV E-F(>70mm/sec) cm LV systole 2.8 cm LVOT Diameter 1.8 cm MV exc.(>10mm) 1.8 cm Est.ejection fraction (50-75%) % DOPPLER: LVIT cm/sec A 74.0 cm/sec E 92.0 cm/sec LA cm/sec RVSP 49 mmHg LVOT 120 cm/sec AOP1/2T m/s Asc. Ao 138 cm/sec RVOT 104 cm/sec RA cm/sec PA 154 cm/sec AV Gradient Peak 7.60 mmHg AV Mean 4.97 mmHg AV Area 2.1 cm MV Gradient Peak 5.20 mmHg MV Mean 3.10 mmHg MV Area cm COMMENTS: Perforator Operator: Anasatsia SON Co Founder And Chief Strategy Officer: 1 Dr. Bergeron TAPE# PACS Pericardial Effusion Y DATE OF SERVICE: 02/14/2019 FINDINGS: 1. Left ventricular chamber size is within normal limits. Left ventricular systolic function is normal. Overall ejection fraction is estimated at 65%. 2. Left atrium is within normal limits at 3.5 cm. Right atrium and right ventricular chamber sizes are mildly dilated. 3. Valvular structures have normal structure and motion. 4. Doppler interrogation reveals mild tricuspid regurgitation. No other valvular insufficiency or stenosis. Pulmonary systolic pressure is estimated at ECHOCARDIOGRAM REPORT [id number] GUMARO CHEN 49 mmHg. 5. No evidence of pericardial effusion or left ventricular thrombus. TRANSINT:[id number] Voice Confirmation ID: [id number] DOCUMENT ID: [id number] ANDI BERGERON MD at 1109 CC: [id number] DICTATION DATE: 02/14/19 1622 MERCHANDISER RETAIL REPRESENTATIVE: 02/14/19 1740 ADM IN [facility] [address] [place] [id number]
--- NOTE | 2019-02-18 11:09 | HP ---
PATIENT: GUMARO HAMM MEDICAL RECORD: [id number] ACCOUNT: [id number] LOCATION:[address] : [birth year] ADMISSION DATE: 02/12/19 PCP: CHANTAL MIXON [facility] HISTORY AND PHYSICAL EXAMINATION ADMITTING DIAGNOSES: 1. Chest pain. 2. Tachycardia. 3. Deep vein thrombosis. 4. Hypertension. 5. Hypothyroidism. 6. Syncope. HISTORY OF PRESENT ILLNESS: Mr. Hamm had an episode of syncope. This has been followed by chest discomfort. Initially, the Emergency Room, thought this was possibly cardiac. His D-dimer is elevated at 9.87. He is set for a Lexiscan stress test. This is underway at this time. He does not complain of shortness of breath. He does complain of continued chest discomfort. He does have a known deep vein thrombosis and is on Eliquis for that and has been compliant with the Eliquis. PHYSICAL EXAMINATION: CONSTITUTIONAL/GENERAL APPEARANCE: Well nourished, well developed, appears stated age. Level of distress, comfortable. EYES: Lids and conjunctivae noninjected. No discharge. No pallor. ENT: Lips within normal limit. No cyanosis. No pallor. NECK: Carotid arteries, bilateral normal upstroke. No bruits. No thrills. No jugular venous pressure or distention. CERVICAL LYMPH NODES: Nontender. Nonenlarged. THYROID: Not enlarged. No nodules. CARDIOVASCULAR: Precordial exam, nondisplaced. No heaves or pericardial thrills. Rate and rhythm, regular. Heart sounds, normal S1, normal S2. No S3, no gallop, no rub. Systolic murmur, not heard. Diastolic murmur, not heard. RESPIRATORY: Respiratory effort, unlabored. Normal curvature. No thoracic deformity. No chest wall tenderness. Percussion, resonant. Auscultation, clear. No wheezes, no rales, no rhonchi. ABDOMEN: Soft, nondistended, nontender. No abdominal pain, no vomiting and normal appetite. MUSCULOSKELETAL: No joint tenderness, normal gait, normal tone. SKIN: Warm and dry. OVERALL IMPRESSION: Chest discomfort with tachycardia. There is a high likelihood that this is a pulmonary embolus. At this time, we will get CT angio PE protocol. Continue the Lexiscan. His hypertension is well controlled on his current dose of Prinivil with systolic blood pressure at 100-110. Further care depends upon findings of these studies. TRANSINT:[id number] Voice Confirmation ID: [id number] DOCUMENT ID: [id number] HISTORY AND PHYSICAL [id number] GUMARO HAMM JEFFREY MD at 1109 CC: [id number] DICTATION DATE: 02/12/19 1030 SOLAR PROCESS ENGINEER: 02/12/19 1043 ADM IN [place] [id number] [place] [id number]
[2019-02-18 11:58] VITALS: BP 118/78
--- NOTE | 2019-02-18 13:09 | NUR ---
I have reviewed this patient and I concur with the Shift Assessment completed by the Licensed Practical Nurse today this shift.
[2019-02-18 14:56] VITALS: BP 124/86
--- NOTE | 2019-02-18 15:35 | NUR ---
HEPARIN ADJUSTED PER PROTOCOL. WILL RECHECK APTT IN 6 HR.
--- NOTE | 2019-02-18 18:25 | NUR ---
SPOKE WITH ABOUT THE WARFARIN. SHE STATED BECUASE ORDERED ANOTHER ONE TIME 5MG DOSE TO DC THE DOSE SHE ORDERED. WILL DC ONE TIME 5MG WARFARIN DOSE. WILL CTM.
--- NOTE | 2019-02-18 19:05 | NUR ---
AWAKE AND ALERT BED IS LOW AND LOCKED SKIN WARM AND DRY PT DENIES NEEDS AT THIS TIME LCTA CALL LIGHT IS IN REACH
[2019-02-18 20:00] VITALS: BP 147/87
--- NOTE | 2019-02-18 23:38 | NUR ---
PTT 78.9 NO CHANGES NEEDED TO HEP GTT CONT AT 9/HR OR 900 UNITS
--- NOTE | 2019-02-19 02:14 | NUR ---
I have reviewed this patient and I concur with the Shift Assessment completed by the Licensed Practical Nurse today this shift.
[2019-02-19 04:00] VITALS: BP 134/81
[2019-02-19 06:28] LABS: BASOPHILS 0.1 % (0-2); EOSINOPHILS 2.8 % (0-7); HEMATOCRIT 36.3 % (42.0-54.0); HEMOGLOBIN 12.4 g/dL (13.5-17.5); IMMATURE GRANULOCYTES 0.9 % (0-5); LYMPHOCYTES 34.6 % (15-50); MCH 27.1 pg (26.0-34.0); MCHC 34.2 g/dL (31.0-37.0); MCV 79.4 fL (80.0-100.0); MEAN PLATELET VOLUME 9.7 fL (7.4-10.4); MONOCYTES 7.2 % (2-11); NEUTROPHILS 54.4 % (40-80); RBC 4.57 10x6/uL (4.20-6.10); WBC 7.5 10x3/uL (4.8-10.8)
[2019-02-19 06:38] LABS: INR 3.16 (0.85-1.17); PROTIME 31.6 SECONDS (11.6-15.0)
[2019-02-19 06:39] LABS: APTT 91.4 SECONDS (22.8-39.4)
[2019-02-19 06:45] LABS: PLATELET COUNT 203 10x3/uL (130-400)
[2019-02-19 06:55] LABS: ALBUMIN 2.6 g/dL (3.4-5.0); ALKALINE PHOSPHATASE 86 U/L (46-116); ALT (SGPT) 90 U/L (10-68); BILIRUBIN - TOTAL 0.36 mg/dL (0.2-1.3); CALC OSMOLALITY 281 mosm/kg (275-300); CALCIUM 8.4 mg/dL (8.5-10.1); CHLORIDE - SERUM 106 mmol/L (98-107); GLUCOSE 96 mg/dL (74-106); POTASSIUM - SERUM 3.3 mmol/L (3.5-5.1); PROTEIN - SERUM 6.5 g/dL (6.4-8.2); SODIUM 142 mmol/L (136-145); T4 THYROXINE 6.7 ug/dL (4.7-13.3); UREA NITROGEN 9 mg/dL (7-18); eGFR NON AFRICAN AMERICAN 87 mL/min (90-120)
[2019-02-19 07:14] LABS: LUPUS - INTERPRETATION Comment: (()); LUPUS - THROMBIN TIME 33.4 sec (0.0-23.0); LUPUS - THROMBIN TIME MIX 22.8 sec (0.0-23.0); LUPUS - dRVVT 34.4 sec (0.0-47.0); PTT-LA 51.1 sec (0.0-51.9)
--- NOTE | 2019-02-19 07:30 | NUR ---
ASSESSMENT DONE. DENIES NEEDS
[2019-02-19 08:47] VITALS: BP 129/73
[2019-02-19 08:53] VITALS: BP 143/90
[2019-02-19 12:52] VITALS: BP 128/76
[2019-02-19] MEDS ORDERED: COUMADIN5 MG PO (14:21)
[2019-02-19] MEDS ORDERED: METOPROLOL TART50 MG PO (14:21)
--- NOTE | 2019-02-19 14:28 | NUR ---
SPOKE WITH DR MENDEL MAHER PT'S MEDS. TO CONTINUE LOPRESSOR 50 MG BID, COUMADIN 5 MG QD. D/C LISINOPRIL, HCTZ.
--- NOTE | 2019-02-19 16:43 | NUR ---
DC HOME PER PERSONAL CAR
--- NOTE | 2019-02-20 09:01 | MORECARE ---
CASE MANAGEMENT DISCHARGE SUMMARY PATIENT: GUMARO CHEN UNIT: [id number] ADM DATE: 02/12/19 AGE: 43 : [birth year] SEX: M ROOM/BED: D.0651 AUTHOR: ANGIE,DOC PHYSICIAN: REFERRING PHYSICIAN: ANDI OGLESBY MD DATE OF SERVICE: 02/20/19 Discharge Plan Patient Name: GUMARO CHEN Facility: [facility]:[place] : 1975 Planned Disposition: Home Anticipated Discharge Date: 02/19/19 Discharge Date: 02/19/2019 Expected LOS: 7 Initial Reviewer: [email or web address] Initial Review Date: 02/12/2019 Generated: 02/20/19 10:01 am DCP- Discharge Planning Updated by [email or web address]: Karuna Armstrong on 02/12/19 7:[address] Patient Name: GUMARO CHEN Admission Status: ER Accout number: [id number] Admission Date: 02-12-2019 : 1975 Admission Diagnosis: Attending: BRAULIO OGLESBY Current LOS: 1 Anticipated DC Date: Planned Disposition: Home Primary Insurance: MEDICAID [place] Discharge Planning Comments: CM met with patient at bedside after explaining CM role and obtaining verbal consent. Patient lives at home with his friend Darlin where he is independent with his care and plans to return there upon discharge. Patient feels this would be a safe discharge. CM discussed availability / needs of home health and medical equipment. Patient states he has a CPAP but Medicaid will not pay for it so they are suppose to pick it up. Patient denies any discharge needs at this time. Patient states he will have his family drive him home upon discharge. CM will continue to follow and assist as needed with discharge planning / needs. Certified Medical Asst: Karuna Armstrong DCPIA - Discharge Planning Initial Assessment Updated by [id number]: Karuna Armstrong on 02/12/19 8:22 pm * Is the patient Alert and Oriented? Yes * How many steps to enter\exit or inside your home? 4-6 * PCP CAROLE * [facility]acy [facility] * Preadmission Environment Home with Family * ADLs Independent * Other Equipment CPAP * List name and contact numbers for known caregivers / representatives who currently or will assist patient after discharge: DARLIN BRYANT- [phone] * Verbal permission to speak to the caregivers and representatives has been obtained from the patient. Yes * Community resources currently utilized None * Additional services required to return to the preadmission environment? No * Can the patient safely return to the preadmission environment? Yes * Has this patient been hospitalized within the prior 30 days at any hospital? No Last DP export: 02/12/19 7:25 p Patient Name: GUMARO CHEN Page [id number] at 0901 All edits/amendments must be made on the electronic document DICTATION DATE: 02/20/19899 GAS SHOVEL OPERATOR: WOOD 02/20/19899 RPT#: [id number] DC DATE:02/19/19 STATUS: DIS IN [facility] [address] [place] [address] END OF REPORT
[2019-02-21 19:08] LABS: FACTOR II DNA ANALYSIS Negative (())
--- NOTE | 2019-03-18 13:38 | DS ---
PATIENT:GUMARO HAMM :77 MEDICAL RECORD: [id number] DISCHARGE SUMMARY ADMISSION DATE: 02/12/19 DISCHARGE DATE: 02/19/19 DISCHARGE DIAGNOSES: 1. Syncope. 2. Pulmonary embolus. 3. Deep vein thrombosis. HOSPITAL COURSE: Mr. Hamm had an episode of syncope and chest pain. Cardiac workup was negative. He had a saddle embolus. He was previously on Eliquis. He was changed over to Coumadin. He was seen by Dr. Miller for a hypercoagulable workup, seen by Dr. Rao. He was discharged home on Coumadin. Follow up will be made with Dr. Rao and Dr. Miller. TRANSINT:[id number] Voice Confirmation ID: [id number] DOCUMENT ID: [id number] ANDI OGLESBY MD at 1338 CC: [id number] DICTATION DATE: 03/11/191915 YARD SWITCHER: 03/12/19 0207 DIS IN 02/19/19 [facility] [address] [place] [address]
== END 2019-02-19 16:43 | disposition home or self-care (01) | DRG 175 ==
LOC: D.ER 07:50 → D.M2 11:21 → OBSVTIME 11:30 → D.ICU 14:10 → D.M2 14:25 → D.ICU 14:25 → D.M2 02-13 18:38
PROVIDERS: Family Medicine; Internal Medicine Hematology & Oncology; Internal Medicine Pulmonary Disease; ADMIT Internal Medicine Interventional Cardiology; ATTEND Internal Medicine Interventional Cardiology
DX: I26.92 Saddle embolus of pulmonary artery without acute cor pulmonale (principal); J96.01 Acute respiratory failure with hypoxia; I82.501 Chronic embolism and thrombosis of unspecified deep veins of right lower extremity; E72.11 Homocystinuria; J44.1 Chronic obstructive pulmonary disease with (acute) exacerbation; R55 Syncope and collapse; E03.9 Hypothyroidism, unspecified; I10 Essential (primary) hypertension; Z79.01 Long term (current) use of anticoagulants; R00.0 Tachycardia, unspecified; E66.9 Obesity, unspecified; Z68.37 Body mass index [BMI] 37.0-37.9, adult; E53.8 Deficiency of other specified B group vitamins; I27.20 Pulmonary hypertension, unspecified

== ENCOUNTER 2019-03-16 13:36 | Emergency (ER) | payer MEDICAID ==
[~2019-03-16] VITALS: Ht 185.4 cm; Wt 106.8 kg
[~2019-03-16 13:36] MED LIST changes: +CLOTRIM ANTIFUN15 GM TOPICAL; +COUMADIN5 MG PO; +HYDROCHLOROTHIA50 MG PO; +IBUPROFEN800 MG PO; +METOPROLOL TART50 MG PO
[2019-03-16 13:50] VITALS: Ht 185.4 cm; Wt 106.8 kg
[2019-03-16 14:10] LABS: BASOPHILS 0.2 % (0-2); HEMATOCRIT 41.7 % (42.0-54.0); HEMOGLOBIN 14.2 g/dL (13.5-17.5); IMMATURE GRANULOCYTES 0.3 % (0-5); LYMPHOCYTES 28.9 % (15-50); MCH 27.6 pg (26.0-34.0); MCHC 34.1 g/dL (31.0-37.0); MCV 81.1 fL (80.0-100.0); MEAN PLATELET VOLUME 9.2 fL (7.4-10.4); NEUTROPHILS 60.6 % (40-80); PLATELET COUNT 181 10x3/uL (130-400); RBC 5.14 10x6/uL (4.20-6.10); RDW 16.7 % (11.5-14.5)
[2019-03-16 14:21] LABS: ALKALINE PHOSPHATASE 90 U/L (46-116); ALT (SGPT) 32 U/L (10-68); BILIRUBIN - TOTAL 0.58 mg/dL (0.2-1.3); CALC OSMOLALITY 280 mosm/kg (275-300); CALCIUM 9.3 mg/dL (8.5-10.1); CARBON DIOXIDE 29.2 mmol/L (21.0-32.0); CHLORIDE - SERUM 106 mmol/L (98-107); GLUCOSE 115 mg/dL (74-106); POTASSIUM - SERUM 3.5 mmol/L (3.5-5.1); PROTEIN - SERUM 7.8 g/dL (6.4-8.2); SODIUM 141 mmol/L (136-145); UREA NITROGEN 10 mg/dL (7-18); eGFR NON AFRICAN AMERICAN 87 mL/min (90-120)
[2019-03-16 14:31] LABS: INR 1.22 (0.85-1.17); PROTIME 14.9 SECONDS (11.6-15.0)
[2019-03-16 14:32] LABS: D-DIMER-QUANTITATIVE 0.68 ug/mLFEU (0.20-0.54)
[2019-03-16 14:33] LABS: CKMB 1.5 U/L (0.0-3.6); CREATINE KINASE 268 UL (21-232); PRO BNP 45 pg/mL (0-125)
[2019-03-16 14:34] LABS: TROPONIN-I < 0.017 ng/mL (0.000-0.060)
[2019-03-16 18:05] VITALS: BP 132/90
== END 2019-03-16 18:06 | disposition home or self-care (01) ==
LOC: D.ER 13:36
PROVIDERS: Family Medicine
DX: I82.411 Acute embolism and thrombosis of right femoral vein (principal); Z91.14 Patient's other noncompliance with medication regimen; F17.200 Nicotine dependence, unspecified, uncomplicated; I10 Essential (primary) hypertension

== ENCOUNTER 2019-05-04 23:44 | Emergency (ER) | payer MEDICAID ==
[~2019-05-04] VITALS: Ht 185.4 cm; Wt 97.3 kg
[2019-05-04 23:48] VITALS: Ht 185.4 cm; Wt 97.3 kg
[2019-05-04] MEDS ORDERED: TRAZODONE HCL150 MG PO (23:53)
[2019-05-05] MEDS ORDERED: NORVASC10 MG PO (01:04)
[2019-05-05 01:13] VITALS: BP 147/86
== END 2019-05-05 01:13 | disposition home or self-care (01) ==
LOC: D.ER 23:44
DX: Z76.0 Encounter for issue of repeat prescription (principal); I10 Essential (primary) hypertension; E07.9 Disorder of thyroid, unspecified; I82.409 Acute embolism and thrombosis of unspecified deep veins of unspecified lower extremity; Z79.01 Long term (current) use of anticoagulants; Z72.89 Other problems related to lifestyle

== ENCOUNTER 2019-12-07 13:20 | Inpatient (IN) | payer MEDICAID ==
[~2019-12-07] VITALS: Ht 185.4 cm; Wt 90.9 kg
[~2019-12-07 13:20] MED LIST changes: +NORVASC10 MG PO; +TRAZODONE HCL150 MG PO
[2019-12-07 14:32] LABS: HEMATOCRIT 49.2 % (42.0-54.0); HEMOGLOBIN 16.4 g/dL (13.5-17.5); MCHC 33.3 g/dL (31.0-37.0); MEAN PLATELET VOLUME 9.7 fL (7.4-10.4); PLATELET COUNT 151 10x3/uL (130-400); RBC 5.86 10x6/uL (4.20-6.10)
[2019-12-07 14:36] LABS: ANION GAP 6.8 mmol/L (8-16); BILIRUBIN - TOTAL 1.28 mg/dL (0.2-1.3); CALCIUM 9.4 mg/dL (8.5-10.1); CARBON DIOXIDE 32.6 mmol/L (21.0-32.0); CREATININE - SERUM 2.4 mg/dL (0.6-1.3); POTASSIUM - SERUM 3.4 mmol/L (3.5-5.1); PROTEIN - SERUM 9.2 g/dL (6.4-8.2)
[2019-12-07 14:39] LABS: ALBUMIN 3.5 g/dL (3.4-5.0)
[2019-12-07 14:57] LABS: APTT 30.1 SECONDS (22.8-39.4); INR 1.23 (0.85-1.17); PROTIME 15.4 SECONDS (11.6-15.0)
[2019-12-07 14:58] LABS: D-DIMER-QUANTITATIVE 0.78 ug/mLFEU (0.20-0.54)
[2019-12-07 15:01] LABS: LYMPHOCYTES 4 % (15-50); MONOCYTES 5 % (2-11); NEUTROPHILS 91 % (40-80); PLATELET ESTIMATE NORMAL
--- NOTE | 2019-12-07 15:40 | NUR ---
URINE SPECIMEN SENT TO LAB
[2019-12-07 15:43] VITALS: BP 114/58
--- NOTE | 2019-12-07 15:43 | NUR ---
PT ORAL TEMP 101.0. EDP NOTIFIED.
[2019-12-07 15:49] LABS: BILIRUBIN NEGATIVE (NEGATIVE); GLUCOSE NEGATIVE (NEGATIVE); KETONE NEGATIVE (NEGATIVE); NITRITE NEGATIVE (NEGATIVE); SPECIFIC GRAVITY 1.025 (1.005-1.020); UROBILINOGEN 4 mg/dL (NORMAL)
[2019-12-07 15:55] LABS: UDS - AMPHET NEGATIVE QUAL (NEGATIVE); UDS - BARB NEGATIVE QUAL (NEGATIVE); UDS - BENZO NEGATIVE QUAL (NEGATIVE); UDS - COCAINE NEGATIVE QUAL (NEGATIVE); UDS - OPIATE NEGATIVE QUAL (NEGATIVE); UDS - PCP NEGATIVE QUAL (NEGATIVE); UDS - THC POSITIVE QUAL (NEGATIVE)
--- NOTE | 2019-12-07 16:16 | NUR ---
US AT BEDSIDE
[2019-12-07 16:59] VITALS: BP 117/72
--- NOTE | 2019-12-07 17:00 | NUR ---
ORAL TEMP 98.1. PT RESTING ON BED. NO S/S OF ACUTE DISTRESS NOTED. VANCOMYCIN INFUSING.
--- NOTE | 2019-12-07 19:44 | NUR ---
RECEIVED FROM ER VIA [employer]. AWAKE,ALERT.NO COMPLAINTS AT PRESENT TIME. EDEMA NOTED TO LLE. IV TO RAC INTACT WITHOUT REDNESS OR EDEMA NOTED..CL IN REACH. ORIENTED TO ROOM.
[2019-12-07 20:29] VITALS: BP 98/50
[2019-12-07 22:13] VITALS: BP 98/50; Ht 185.4 cm; Wt 90.9 kg
[2019-12-08 00:16] VITALS: BP 93/51
[2019-12-08 04:39] LABS: BASOPHILS 0.1 % (0-2); EOSINOPHILS 0.2 % (0-7); HEMATOCRIT 41.4 % (42.0-54.0); HEMOGLOBIN 13.5 g/dL (13.5-17.5); IMMATURE GRANULOCYTES 0.7 % (0-5); LYMPHOCYTES 9.1 % (15-50); MCH 27.1 pg (26.0-34.0); MCHC 32.6 g/dL (31.0-37.0); MEAN PLATELET VOLUME 9.8 fL (7.4-10.4); MONOCYTES 7.2 % (2-11); NEUTROPHILS 82.7 % (40-80); PLATELET COUNT 170 10x3/uL (130-400); RBC 4.99 10x6/uL (4.20-6.10); RDW 15.3 % (11.5-14.5); WBC 17.5 10x3/uL (4.8-10.8)
[2019-12-08 05:12] LABS: ANION GAP 6.4 mmol/L (8-16); BILIRUBIN - TOTAL 0.93 mg/dL (0.2-1.3); CALCIUM 8.2 mg/dL (8.5-10.1); CARBON DIOXIDE 30.7 mmol/L (21.0-32.0); CREATININE - SERUM 1.9 mg/dL (0.6-1.3); POTASSIUM - SERUM 3.1 mmol/L (3.5-5.1); PROTEIN - SERUM 7.3 g/dL (6.4-8.2)
[2019-12-08 05:21] LABS: ALBUMIN 2.6 g/dL (3.4-5.0)
[2019-12-08 06:17] VITALS: BP 101/55
--- NOTE | 2019-12-08 07:15 | NUR ---
PATIENT SHIFT REPORT TAKEN. LAYING IN BED ON BACK. PAIN CONTROL IS A GOAL FOR TODAY. CL IN REACH. WCTM
--- NOTE | 2019-12-08 07:16 | NUR ---
I have reviewed this patient and I concur with the Shift Assessment completed by the Licensed Practical Nurse today this shift.
[2019-12-08 09:10] VITALS: BP 99/58
--- NOTE | 2019-12-08 10:00 | NUR ---
PATIENT GIVEN PAIN MED PER EMAR. I STATED HE WOULD BE ABLE TO HAVE MORE IN 4 HRS. HE STATED THAT "IT DON'T EVEN HELP." I SAID THAT WE WOULD TELL HIS DOCTOR WHEN THEY CAME BY. WILL GIVE CELLULITIS INFORMATION TO HIM. IV THERAPY WAS AT 50 ML/ H TURNED UP TO 125 ML/ H PER EMAR. CL IN REACH. NO FURTHER NEEDS AT THIS TIME. WCTM
[2019-12-08 12:58] VITALS: BP 105/58
--- NOTE | 2019-12-08 15:06 | NUR ---
FRIEND IN ROOM. ASKED PATIENT WANTED PAIN MED. PT HAD PREVIOUSLY REQUESTED PAIN MED AROUND NOON WHEN I HAD EXPLAINED TO HIM IT WOULD BE AVAILABLE TO RECIEVE AROUND 1400. PATIENT DENIED WANTING PAIN MEDICATION BECAUSE IT "DIDN'T WORK" STATED THAT HE WOULD WALK AND GO TO [facility]. FRIEND AND I REITERATED THAT IF HE DIDN'T TAKE PAIN MED THEN IT WILL NOT WORK. PATIENT STATES PAIN IS "100" OUT OF 10. VS STABLE. CL IN REACH. NO FURTHER NEEDS AT THIS TIME. WCTM
[2019-12-08 16:45] VITALS: BP 103/61
--- NOTE | 2019-12-08 18:37 | NUR ---
PATIENT STATES SHE FEELS LIKE SHE IS SUFFOCATING. LUNG SOUNDS CLEAR. VS STABLE. BP 144/75. HR 105. RESP 20. OX SAT IS 97%. DR SHAIKH NOTIFIED AND WILL SEE NEXT.
--- NOTE | 2019-12-08 20:00 | NUR ---
REC'D.CHGE OF SHIFT WALKING ROUNDSIN BED HOB ELEVATED 40 DEGREES.RECV'ING IV PAIN MEDS.VERY AGGITATED STATES THAT DOESN'T DO ANYTHING FOR ME.IF I CAN'T GET MORE PAIN MED I'LL WALK OUT OF HERE.WILL CONTINUE TO MONITOR FOR ANY CHGES. IN ADMITTING DIAGNOSIS OF CELLULITIS AND FOLLOW CURRENT PLAN OF CARE.
[2019-12-08 20:22] VITALS: BP 109/65
[2019-12-09] VITALS (7 sets, daily range): BP systolic 105–125; BP diastolic 63–76
--- NOTE | 2019-12-09 04:49 | NUR ---
I have reviewed this patient and I concur with the Shift Assessment completed by the Licensed Practical Nurse today this shift.
[2019-12-09 06:13] LABS: BASOPHILS 0.4 % (0-2); EOSINOPHILS 0.4 % (0-7); HEMATOCRIT 38.3 % (42.0-54.0); HEMOGLOBIN 12.4 g/dL (13.5-17.5); IMMATURE GRANULOCYTES 1.8 % (0-5); LYMPHOCYTES 14.4 % (15-50); MCH 27.1 pg (26.0-34.0); MCHC 32.4 g/dL (31.0-37.0); MCV 83.8 fL (80.0-100.0); MEAN PLATELET VOLUME 9.2 fL (7.4-10.4); MONOCYTES 10.1 % (2-11); NEUTROPHILS 72.9 % (40-80); PLATELET COUNT 177 10x3/uL (130-400); RBC 4.57 10x6/uL (4.20-6.10); RDW 15.4 % (11.5-14.5); WBC 13.4 10x3/uL (4.8-10.8)
[2019-12-09 06:38] LABS: ANION GAP 10.4 mmol/L (8-16); CALCIUM 8.3 mg/dL (8.5-10.1); CARBON DIOXIDE 27.1 mmol/L (21.0-32.0); MAGNESIUM - SERUM 2.1 mg/dL (1.8-2.4); PHOSPHOROUS 2.7 mg/dL (2.5-4.9); POTASSIUM - SERUM 3.5 mmol/L (3.5-5.1); VANCOMYCIN - TROUGH 18.1 ug/mL (10.0-20.0)
[2019-12-09 06:49] LABS: CREATININE - SERUM 1.3 mg/dL (0.6-1.3)
--- NOTE | 2019-12-09 14:38 | NUR ---
PATIENT STATED NO NEED FOR MEDICATIONS THAT THE AQUAPHOR WAS HELPING WITH THE BURNING, ITCHING AND PAIN IN HIS LOWER LEFT LEG. REQUESTED AND RECIEVED FRESH WATER. APPLIED SOME DIABETIC SOCKS WITH NON SKID SOCKS OVER. CL IN REACH. NO FURTHER NEEDS AT THIS TIME. WCTM
--- NOTE | 2019-12-09 20:23 | NUR ---
REC'D. WALKING ROUNDS CHGE. OF SHIFT.WATCHING TV. LEFT LEG REMAINS 1-2+ EDEMA WIGGLES TOES AND DORSIFLEXES.PEDAL PULSE PRESENT.UP ON PILLOW.STATES WANT TO GO HOME WILL CONTINUE TO MONITOR FOR ANY CHGES IN NEUROVASCULAR STATUS AND FOLLOW CURRENT PLAN OF CARE
[2019-12-10 00:28] VITALS: BP 111/66
--- NOTE | 2019-12-10 04:36 | NUR ---
I have reviewed this patient and I concur with the Shift Assessment completed by the Licensed Practical Nurse today this shift.
[2019-12-10 05:02] LABS: BASOPHILS 0.2 % (0-2); EOSINOPHILS 0.9 % (0-7); HEMATOCRIT 37.4 % (42.0-54.0); HEMOGLOBIN 12.3 g/dL (13.5-17.5); IMMATURE GRANULOCYTES 4.9 % (0-5); LYMPHOCYTES 15.5 % (15-50); MCH 27.3 pg (26.0-34.0); MCHC 32.9 g/dL (31.0-37.0); MCV 82.9 fL (80.0-100.0); MEAN PLATELET VOLUME 9.1 fL (7.4-10.4); MONOCYTES 9.3 % (2-11); NEUTROPHILS 69.2 % (40-80); PLATELET COUNT 196 10x3/uL (130-400); RBC 4.51 10x6/uL (4.20-6.10); RDW 15.5 % (11.5-14.5); WBC 13.4 10x3/uL (4.8-10.8)
[2019-12-10 05:09] LABS: APTT 40.1 SECONDS (22.8-39.4); INR 1.27 (0.85-1.17); PROTIME 15.8 SECONDS (11.6-15.0)
[2019-12-10 05:14] LABS: ANION GAP 8.5 mmol/L (8-16); CALCIUM 8.3 mg/dL (8.5-10.1); CREATININE - SERUM 1.3 mg/dL (0.6-1.3); MAGNESIUM - SERUM 1.9 mg/dL (1.8-2.4); PHOSPHOROUS 3.1 mg/dL (2.5-4.9); POTASSIUM - SERUM 3.5 mmol/L (3.5-5.1)
[2019-12-10 05:50] VITALS: BP 122/79
--- NOTE | 2019-12-10 08:30 | NUR ---
SHIFT ASSESSMENT COMPLETED. PATIENT IS HOPING FOR DISCHARGE TODAY. CL IN REACH. WCTM.
[2019-12-10 09:09] VITALS: BP 119/79
--- NOTE | 2019-12-10 12:17 | NUR ---
PATIENT IN BED LAYING ON RIGHT SIDE. VISITOR HAS LEFT. CL IN REACH. NO NEEDS AT THIS TIME. WCTM
[2019-12-10 12:24] VITALS: BP 118/83
[2019-12-10 18:01] VITALS: BP 121/80
[2019-12-10 20:00] VITALS: BP 122/79
[2019-12-11] VITALS: BP 122/68
--- NOTE | 2019-12-11 01:24 | NUR ---
REC'D CHGE OF SHIFT WALKING ROUNDS IN BED TALKING ON PHONE.LEFT LEG REMAINS SWOLLEN ELEVATED ON PILLOW. PEDAL PULSE PRESENT WARM TO TOUCH.WILL CONTINUE TO MONITOR FOR ANY CHGES IN NEUROVASCULAR STATUS AND FOLLOW CURRENT PLAN OF CARE.
[2019-12-11 04:00] VITALS: BP 110/61
--- NOTE | 2019-12-11 04:44 | NUR ---
I have reviewed this patient and I concur with the Shift Assessment completed by the Licensed Practical Nurse today this shift.
[2019-12-11 06:36] LABS: HEMATOCRIT 37.4 % (42.0-54.0); HEMOGLOBIN 12.2 g/dL (13.5-17.5); MCH 27.2 pg (26.0-34.0); MCHC 32.6 g/dL (31.0-37.0); MCV 83.3 fL (80.0-100.0); MEAN PLATELET VOLUME 9.4 fL (7.4-10.4); PLATELET COUNT 230 10x3/uL (130-400); RBC 4.49 10x6/uL (4.20-6.10); RDW 15.6 % (11.5-14.5)
[2019-12-11 06:47] LABS: INR 1.47 (0.85-1.17); PROTIME 17.7 SECONDS (11.6-15.0)
[2019-12-11 07:07] LABS: ANION GAP 9.5 mmol/L (8-16); CALCIUM 8.4 mg/dL (8.5-10.1); CARBON DIOXIDE 24.2 mmol/L (21.0-32.0); CREATININE - SERUM 1.2 mg/dL (0.6-1.3); MAGNESIUM - SERUM 1.9 mg/dL (1.8-2.4); PHOSPHOROUS 3.5 mg/dL (2.5-4.9); POTASSIUM - SERUM 3.7 mmol/L (3.5-5.1)
--- NOTE | 2019-12-11 08:00 | NUR ---
ASSESSMENT PER FLOW SHEET. PATIENT IS WITHOUT DISTRESS.VERY ANXIOUS BECAUSE HE WILL MISS APPOINTMENT AT 'S CLINIC TODAY. MONITOR FOR NEEDS.
--- NOTE | 2019-12-11 09:18 | NUR ---
SPOKE WITH JOCELINE AT [employer],[phone]. INFORMED OFFICE THAT PATIENT WAS NOT MAKING APPOINTMENT TODAY AT 1100. SHE SAID SHE WOULD INFORM .
[2019-12-11 09:32] VITALS: BP 136/88
[2019-12-11 09:41] LABS: EOSINOPHILS 1 % (0-7); LYMPHOCYTES 14 % (15-50); MONOCYTES 19 % (2-11); NEUTROPHILS 59 % (40-80); PLATELET ESTIMATE NORMAL
[2019-12-11 09:42] LABS: ROULEAUX OCC
[2019-12-11] MEDS ORDERED: CLEOCIN HCL300 MG PO (11:23)
[2019-12-11] MEDS ORDERED: LOVENOX INJ100 MG/ML SC (11:24)
[2019-12-11] MEDS ORDERED: AQUAPHOR HEALIN50 GM TOPICAL (11:25)
[2019-12-11 13:17] VITALS: BP 112/70
--- NOTE | 2019-12-11 15:59 | NUR ---
DISCHARGE INSTRUCTIONS,STATES UNDERSTANDING.IV DCD WITH CATH TIP INTACT. [employer]OVENOX INJECTION TEACHING.
--- NOTE | 2019-12-11 16:38 | NUR ---
PATIENT LEFT UNIT VIA WHEELCHAIR FOR TRANSPORT HOME
--- NOTE | 2019-12-11 18:49 | MORECARE ---
CASE MANAGEMENT DISCHARGE SUMMARY PATIENT: GUMARO CHEN UNIT: [id number] ADM DATE: 12/07/19 AGE: 44 : 77 SEX: M ROOM/BED: D.2212 AUTHOR: ANGIE,DOC PHYSICIAN: REFERRING PHYSICIAN: SARA BAE MD DATE OF SERVICE: 12/11/19 Discharge Plan Patient Name: GUMARO CHEN Facility: [facility]:[place] : 1975 Planned Disposition: Home or Self Care Anticipated Discharge Date: 12/11/19 Discharge Date: 12/11/2019 Expected LOS: 4 Initial Reviewer: [email or web address] Initial Review Date: 12/07/2019 Generated: 12/11/19 7:48 pm DCP- Discharge Planning Updated by [email or web address]: Lidia Kang on 12/11/19 5:[address] CM met with patient regarding DC plans/needs. Patient agrees to CM interview. Patient states he lives independently, alone, in an apartment. Stairs: 2 flights w/rails. PCP: Dr. cota. [facility] DME: [facility]. Denies having an emergency contact. Denies use of community resources. Denies need for HHS, SNF, Rehab or OP Therapy. Patient states his apartment is a safe environment to return to. Denies being hospitalized within the past 30 days. Patient states he will have transportation upon DC. Patient is not very forthcoming with information. Patient denies any DC needs at this time. DCPIA - Discharge Planning Initial Assessment Updated by [email or web address]: Lidia Kang on 12/11/19 6:44 pm * Is the patient Alert and Oriented? Yes * How many steps to enter\exit or inside your home? 2 flights * PCP Dr. Cota * Pharmacy [facility] [address] * Preadmission Environment [facility] * Facility Name NA * ADLs Independent * Equipment [employer] * Other Equipment C-pap * List name and contact numbers for known caregivers / representatives who currently or will assist patient after discharge: NA * Verbal permission to speak to the caregivers and representatives has been obtained from the patient. N/A * Community resources currently utilized None * Please name any agencies selected above. NA * Additional services required to return to the preadmission environment? No * Can the patient safely return to the preadmission environment? Yes * Has this patient been hospitalized within the prior 30 days at any hospital? No Patient Name: GUMARO CHEN Page [id number] at 1849 All edits/amendments must be made on the electronic document DICTATION DATE: 12/11/191848 INSULATION MANAGER: WOOD 12/11/191848 RPT#: [id number] DC DATE:12/11/19 STATUS: DIS IN [facility] [address] [place] [address] END OF REPORT
== END 2019-12-11 16:39 | disposition home or self-care (01) | DRG 603 ==
LOC: D.ER 13:20 → D.MS 17:10
PROVIDERS: Family Medicine; ADMIT Family Medicine; ATTEND Family Medicine
DX: L03.116 Cellulitis of left lower limb (principal); N17.9 Acute kidney failure, unspecified; E87.1 Hypo-osmolality and hyponatremia; I10 Essential (primary) hypertension; E87.6 Hypokalemia; E03.9 Hypothyroidism, unspecified; K21.9 Gastro-esophageal reflux disease without esophagitis; Z79.01 Long term (current) use of anticoagulants; Z86.718 Personal history of other venous thrombosis and embolism